=== PATIENT | female | born 1990 | race Caucasian/White ===

== ENCOUNTER 2016-05-22 08:45 | Emergency (ER) | payer OTHER ==
[~2016-05-22 08:45] MED LIST: COLACE 100MG C100 MG PO
[2016-05-22 10:53] LABS: HEMOGLOBIN 12.5 gm/dl (12.3-15.3); RED BLOOD COUNT 4.53 M/UL (4.00-5.10); WHITE BLOOD COUNT 5.4 K/UL (4.5-11.0)
[2016-05-22 11:19] LABS: BUN/CREATININE RATIO 11 (0-10)
== END 2016-05-22 16:50 | disposition home or self-care (01) ==
LOC: ER1 08:45
PROVIDERS: Physician Assistant
DX: N39.0 Urinary tract infection, site not specified (principal); N93.8 Other specified abnormal uterine and vaginal bleeding; I10 Essential (primary) hypertension; Z90.49 Acquired absence of other specified parts of digestive tract; Z88.0 Allergy status to penicillin; Z88.8 Allergy status to other drugs, medicaments and biological substances; Z79.899 Other long term (current) drug therapy
CPT/HCPCS: 36415; 71020; 80053; 81001; 82550; 82553; 83690; 83874; 84484; 84703; 85025; 87086; 87210; 93005; 96361; 96374; 96375; 99284; J2270; J2405; J7030; J7050; Q9962